=== PATIENT | female | born 1975 | race American Indian/Alaskan Native ===

== ENCOUNTER 2020-08-24 18:28 | Emergency (ER) | payer SELFPAY | END 2020-08-24 21:15 | disposition left against medical advice (07) | LOC: ED 18:28 | DX: M25.562 Pain in left knee (principal); Z53.21 Procedure and treatment not carried out due to patient leaving prior to being seen by health care provider ==

== ENCOUNTER 2021-06-16 09:48 | Emergency (ER) | payer MEDICAID ==
[2021-06-16] MEDS ORDERED: KETOROLAC 60 MG/2 ML INJ IM ONE (10:58)
[2021-06-16] MEDS ORDERED: dexAMETHasone 20 MG/5 ML VIAL IM ONE (10:58)
--- NOTE | 2021-06-16 11:02 | Emergency Department Report ---
ED Back Pain/Injury HPI - General Chief Complaint: Extremity Injury, Lower Stated Complaint: LT LOWER SIDE PAIN Time Seen by Provider: 06/16/21 10:11 Source: patient Limitations: No Limitations - History of Present Illness Initial Comments: 46-year-old female with a past medical history of thyroid disease presents to the ER today with complaints of left lower back pain. Patient states that symptoms started gradually 3 days ago. Patient describes the pain as a sharp pain which has been constant but waxes and wanes depending on position, and she states that it radiates down into the lateral left thigh. She states that it seems to be worse when she bends, walks, and with certain positions. She states that she has been taking [id number] 800 mg ibuprofen without much relief of her pain. She reports some tingling in the left leg but otherwise denies any numbness, weakness, bowel or bladder incontinence, saddle anesthesia, abdominal pain, chest pain, UTI symptoms. She denies any fever or chills. She states that she had similar symptoms 6 months ago, but he was short-lived and resolved on its own. She states that she did not get seen at the time that she had the pain. She currently does not have a PCP. She states he drinks occasionally. She denies any illicit drug use. MD Complaint: back pain -: Gradual, days(s) (3) - Related Data Previous Rx's Medication Instructions Recorded Last Taken Type Acetaminophen/Codeine [Tylenol 1 tab PO Q6H PRN #12 tab 06/16/21 Unknown Rx /Codeine # 3 tab] methOCARBAMOL [Robaxin TAB] 750 mg PO Q8H PRN #20 tablet 06/16/21 Unknown Rx methylPREDNISolone [Medrol 4MG 4 mg PO DAILY #1 tab.ds.pk 06/16/21 Unknown Rx DOSEPAK (21 tabs)] Allergies Allergy/AdvReac Type Severity Reaction Status Date / Time shellfish derived Allergy Shortness Verified 06/16/21 09:51 of Breath ED Review of Systems ROS: Stated complaint: LT LOWER SIDE PAIN Other details as noted in HPI Comment: All other systems reviewed and negative Constitutional: denies: chills, fever Eyes: denies: eye pain, eye discharge, vision change ENT: denies: ear pain, throat pain, dental pain, hearing loss, epistaxis, congestion Respiratory: denies: cough, shortness of breath, SOB with exertion, SOB at rest, wheezing Cardiovascular: denies: chest pain, palpitations Gastrointestinal: denies: abdominal pain, nausea, diarrhea, constipation, hematemesis, melena, hematochezia Genitourinary: denies: urgency, dysuria, frequency, hematuria, discharge, abnormal menses, dyspareunia Musculoskeletal: back pain. denies: joint swelling, arthralgia, myalgia Skin: denies: rash, lesions, change in color, change in hair/nails, pruritus Neurological: paresthesias (tingling left leg ). denies: headache, weakness, numbness, confusion, abnormal gait, vertigo Psychiatric: denies: anxiety, depression, auditory hallucinations, visual hallucinations, homicidal thoughts, suicidal thoughts Hematological/Lymphatic: denies: easy bleeding, easy bruising, swollen glands ED Past Medical Hx - Past Medical History Previous Medical History?: No - Surgical History Additional Surgical History: ANKLE/ C SECTION - Medications Home Medications: Home Medications Medication Instructions Recorded Confirmed Last Taken Type Acetaminophen/Codeine [Tylenol 1 tab PO Q6H PRN #12 tab 06/16/21 Unknown Rx /Codeine # 3 tab] methOCARBAMOL [Robaxin TAB] 750 mg PO Q8H PRN #20 tablet 06/16/21 Unknown Rx methylPREDNISolone [Medrol 4MG 4 mg PO DAILY #1 tab.ds.pk 06/16/21 Unknown Rx DOSEPAK (21 tabs)] ED Physical Exam - General Limitations: No Limitations General appearance: alert, in no apparent distress, obese - Head Head exam: Present: atraumatic, normocephalic, normal inspection - Eye Eye exam: Present: normal appearance, PERRL, EOMI Pupils: Present: normal accommodation - Neck Neck exam: Present: normal inspection, full ROM - Respiratory Respiratory exam: Present: normal lung sounds bilaterally. Absent: respiratory distress, wheezes, rales, rhonchi - Cardiovascular Cardiovascular Exam: Present: regular rate, normal rhythm, normal heart sounds - GI/Abdominal GI/Abdominal exam: Present: soft. Absent: distended, tenderness, guarding, rebound - Extremities Exam Extremities exam: Present: normal inspection, full ROM. Absent: tenderness, calf tenderness - Back Exam Back exam: Present: normal inspection, tenderness (Left sciatic notch area ). Absent: full ROM (ROM of lumbar spine mildly reduced due to pain ), vertebral tenderness - Expanded Back Exam Expanded Back exam: Sciatic Notch Tenderness: Left - Neurological Exam Neurological exam: Present: alert, oriented X3, CN II-XII intact, normal gait. Absent: motor sensory deficit - Psychiatric Psychiatric exam: Present: normal affect, normal mood - Skin Skin exam: Present: intact ED Course Vital Signs 06/16/21 06/16/21 06/16/21 09:53 11:05 11:08 Temperature 98.5 F Pulse Rate 85 84 Respiratory 18 16 16 Rate Blood Pressure 143/91 149/85 O2 Sat by Pulse 97 99 Oximetry ED Medical Decision Making - Radiology Data Radiology results: report reviewed Patient: AMRIK WORTHINGTON MR#: [id number] : 1975 Acct:[id number] Age/Sex: 46 / F ADM Date: 06/16/21 Loc: ED Attending Dr: Ordering Physician: HOLLI TURK Date of Service: 06/16/21 Procedure(s): XR spine lumbosacral 2-3V Accession Number(s): [id number] cc: HOLLI TURK Fluoro Time In Minutes: Lumbar spine radiograph, 3 views HISTORY: Sciatica COMPARISON: None FINDINGS: Lumbar spinal alignment is preserved. Vertebral body heights are intact. There is no evidence of fracture. Moderate lower lumbar facet arthropathy. There is mild disc space height loss at L5-S1. Soft tissues are unremarkable. IMPRESSION: Lower lumbar spondylosis, as above. No evidence of acute process. Signer Name: Tonya Perez MD Signed: 06/16/2021 11:40 AM Workstation Name: [id number] Transcribed By: JS Dictated By: TONYA PEREZ MD Electronically Authenticated By: TONYA PEREZ MD Signed Date/Time: 06/16/21 1140 DD/ 1139 TD/TT: - Medical Decision Making X-ray of the lumbar spine shows - Lumbar spinal alignment is preserved. Vertebral body heights are intact. There is no evidence of fracture. Moderate lower lumbar facet arthropathy. There is mild disc space height loss at L5-S1. Soft tissues are unremarkable. The patient is now resting comfortably and feels better, is alert, talkative, interactive and in no distress. The patient is neurologically intact and is ambulatory in the ED. the patient has no fever, no bowel or bladder incontinence, no saddle anesthesia and is otherwise alert and well-appearing. With history, and physical examination does not suggest the presence of acute spinal epidural abscess, acute epidural bleed, cauda equina syndrome, abdominal/thoracic aortic aneurysm, aortic dissection or other acute process requiring further testing, treatment or consultation in the emergency department. Discussed x-ray results with patient as well as suspected diagnosis and treatment plan with patient. Recommend following up with orthospine specialist for an outpatient MRI. Referral information will be given to patient. The vital signs have been stable. The patient condition is stable and appropriate for discharge. The patient will pursue further outpatient evaluation with the primary care physician or other designated or consulting physician as indicated in the discharge instructions. Critical care attestation.: If time is entered above; I have spent that time in minutes in the direct care of this critically ill patient, excluding procedure time. ED Disposition Clinical Impression: Sciatica, DDD (degenerative disc disease), lumbar Disposition: HOME / SELF CARE / HOMELESS Is pt being admited?: No Does the pt Need Aspirin: No Condition: Stable Instructions: Sciatica, Degenerative Disk Disease Additional Instructions: I recommend that you take the medrol dose pack, the tylenol 3 and robaxin as prescribed. It is important that you follow up with Orthospine specialist listed on your discharge instructions for further evaluation including MRI. Return to ED if worse. Prescriptions: methylPREDNISolone [Medrol 4MG DOSEPAK (21 tabs)] 4 mg PO DAILY #1 tab.ds.pk methOCARBAMOL [Robaxin TAB] 750 mg PO Q8H PRN #20 tablet PRN Reason: muscle spasm Acetaminophen/Codeine [Tylenol /Codeine # 3 tab] 1 tab PO Q6H PRN #12 tab PRN Reason: Pain , Severe (7-10) Referrals: [facility] [Provider Group] - 3-5 Days [facility] [Provider Group] - 3-5 Days Forms: Work/School Release Form(ED) Time of Disposition: 12:15
[2021-06-16 11:08] VITALS: BP 149/85
--- NOTE | 2021-06-16 11:44 | XRay Report ---
Lumbar spine radiograph, 3 views HISTORY: Sciatica COMPARISON: None FINDINGS: Lumbar spinal alignment is preserved. Vertebral body heights are intact. There is no eviden ce of fracture. Moderate lower lumbar facet arthropathy. There is mild disc space height loss at L5-S 1. Soft tissues are unremarkable. IMPRESSION: Lower lumbar spondylosis, as above. No evidence of acute process. Signer Name: Artis Perez MD Signed: 06/16/2021 11:40 AM Workstation Name: [id number]
== END 2021-06-16 12:20 | disposition home or self-care (01) ==
LOC: ED 09:48
DX: M54.32 Sciatica, left side (principal); M51.36 Other intervertebral disc degeneration, lumbar region; Z98.890 Other specified postprocedural states; Z91.013 Allergy to seafood
CPT/HCPCS: 72100; 96372; 99283; J1100; J1885